=== PATIENT | male | born 1965 | race Caucasian/White ===

== ENCOUNTER 2024-11-15 09:35 | Inpatient (IN) | payer BC, SELFPAY ==
[2024-11-15] VITALS (10 sets, daily range): BP systolic 123–148; BP diastolic 84–96; PULSE 55–73; RESP 16–18; TEMP 36.4–36.9; O2SAT 92–96; BMI 30.3; BMI 30.4
--- NOTE | 2024-11-15 09:54 | CRLHL7_ITS ---
For Patients: As a result of the Century Cures Act, medical imaging exams and procedure reports are released immediately into your electronic medical record. You may view this report before your referring provider. If you have questions, please contact your health care provider. INDICATION: Acute stroke, left-sided weakness. TECHNIQUE: CTA neck with contrast bolus tracking, 3D angiographic rendering using maximum intensity projection (MIP) and images permanently archived. FINDINGS: There is a chronic dissection of the distal cervical right ICA; there is no flow-limiting stenosis or intraluminal filling defect. There is no significant left carotid artery stenosis or dissection. There is no significant vertebral artery stenosis or dissection. The soft tissues of the neck are within normal limits. The cervical spine is in normal alignment. Degenerative changes are noted in the cervical spine. IMPRESSION: 1. 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 2. No significant left carotid or vertebral artery stenosis or dissection. Please note that all CT scans at this facility use dose modulation, iterative reconstruction, and/or weight-based dosing when appropriate to reduce radiation dose to as low as reasonably achievable. Dictated by Yemi Zaman MD @ 11/15/2024 4:41:16 PM (Electronically Signed)
--- NOTE | 2024-11-15 09:54 | CRLHL7_ITS ---
For Patients: As a result of the Century Cures Act, medical imaging exams and procedure reports are released immediately into your electronic medical record. You may view this report before your referring provider. If you have questions, please contact your health care provider. Indication: Left-sided weakness. Technique: Noncontrast CT images of the brain. Comparison: None. Findings: Mild diffuse cerebral volume loss. No mass effect or midline shift. Cardenas-white differentiation is maintained. No acute intracranial hemorrhage or pathologic extra-axial fluid collection. Intracranial atherosclerotic calcifications. Globes are symmetric. Calvarium is intact. Severely opacified frontal sinuses. The mastoid air cells are clear. Impression: No acute intracranial hemorrhage or mass effect. Please note that all CT scans at this facility use dose modulation, iterative reconstruction, and/or weight-based dosing when appropriate to reduce radiation dose to as low as reasonably achievable. Dictated by Angel Luis Duncan MD @ 11/15/2024 11:07:07 AM (Electronically Signed)
--- NOTE | 2024-11-15 09:54 | CRLHL7_ITS ---
For Patients: As a result of the Century Cures Act, medical imaging exams and procedure reports are released immediately into your electronic medical record. You may view this report before your referring provider. If you have questions, please contact your health care provider. INDICATION: Acute stroke, left-sided weakness. TECHNIQUE: CTA head with contrast bolus tracking, 3D angiographic rendering using maximum intensity projection (MIP) and images permanently archived. FINDINGS: There is normal opacification of the intracranial vasculature. There is no large vessel occlusion. No aneurysm is identified. IMPRESSION: Unremarkable head CTA. Please note that all CT scans at this facility use dose modulation, iterative reconstruction, and/or weight-based dosing when appropriate to reduce radiation dose to as low as reasonably achievable. Dictated by Yemi Zaman MD @ 11/15/2024 4:38:00 PM (Electronically Signed)
[2024-11-15 10:11] LABS: Lactate* 1.1 mmol/L (0.5-1.9)
[2024-11-15 10:15] LABS: Basophils Percent Auto 0.5 % (0.0-3.0); Eosinophils Percent Auto 1.3 % (0.0-7.0); Hematocrit 52.1 % (37.0-53.0); Hemoglobin* 17.5 gm/dL (13.5-17.5); Immature Granulocytes Pct Auto 0.3 %; Lymphocytes Percent Auto 48.9 % (20-44); Mean Corpuscular HGB Conc 34 gm/dL (32-36); Mean Corpuscular Hemoglobin 31 pg (26-34); Mean Corpuscular Volume 94 fL (80-100); Monocytes Percent Auto 4.6 % (0.0-11.0); Neutrophils Percent Auto 44.4 % (42.0-72.0); Platelet Count* 268 K/uL (140-440); RDW Coefficient of Variation % 12.2 % (11.5-15.5); Red Blood Count 5.57 m/uL (4.30-5.90); White Blood Count* 11.34 K/uL (4.50-11.00)
[2024-11-15 10:18] LABS: Slide Review Reflex No
--- NOTE | 2024-11-15 10:20 | ED_ITS ---
HPI - General Adult General Chief complaint: Weakness Stated complaint: weakness Time Seen by Provider: 11/15/24 09:39 Source: patient Mode of arrival: ambulatory Limitations: no limitations History of Present Illness HPI narrative: 59-year-old male presenting with left-sided weakness. Patient states that 2 days ago he started developing cramping in the left lower extremity and that slowly evolved to weakness. By Saturday evening he states that he was having a hard time using his left leg. By the time he woke up on Saturday morning he could not use his left leg at all and he was having a difficult time walking. He went about his business all day Saturday and noticed that I he was having a hard time using his left arm as well. By Saturday he thought things were a little bit better but certainly not back to normal. He is having a hard time ambulating, states that his left arm is not necessarily weak but is not functioning properly, he was having word-finding difficulty yesterday that resolved, but he still cannot walk in a straight line and complains of left leg weakness. He denies headache, blurry vision or double vision. He denies any ringing in his ears. Past medical history significant for hypertension. He has had both hips replaced. He takes amlodipine, Lasix, metoprolol and spironolactone. He denies tobacco or alcohol use. Related Data Home Medications ?Medication ?Instructions ?Recorded ?Confirmed amlodipine 10 mg tablet 10 mg PO DAILY 11/15/24 11/15/24 furosemide 20 mg tablet (Lasix) 20 mg PO DAILY 11/15/24 11/15/24 metoprolol succinate 200 mg 200 mg PO DAILY 11/15/24 11/15/24 tablet,extended release 24 hr spironolactone 25 mg tablet 25 mg PO DAILY 11/15/24 11/15/24 Allergies Allergy/AdvReac Type Severity Reaction Status Date / Time No Known Drug Allergies Allergy Verified 11/15/24 09:44 Review of Systems Status of ROS: Reports: 10 or more systems reviewed and unremarkable except as noted in History and below [facility] Social History Smoking Status: Smoker, status unknown Non-prescribed substance use: denies use Exam Narrative: Exam Narrative: Well-nourished well-developed patient in no acute distress. Alert and oriented. Answers questions appropriately. Mood and affect are appropriate. Thoughts are goal oriented and rational. No tangential or magical thinking noted. Patient speaks in full sentences without needing to catch his breath. Speech is not slurred or pressured. HEENT: Normocephalic atraumatic. Pupils are equally round reactive to light. Extraocular muscles are intact. Conjunctivae are moist without any icterus noted. Moist mucous membranes. Posterior pharynx is normal. Neck is soft without any lymphadenopathy or thyromegaly. Cardiovascular: Heart is regular rate and rhythm S1 and S2 are present without any murmurs. Lungs: Clear to auscultation bilaterally no wheezes rhonchi or rales are appreciated. Patient takes deep breaths without any discomfort. Abdomen: Soft and nontender nondistended with normal bowel sounds. Extremities: Bilateral lower extremities are without edema. Skin: Well perfused without any obvious rashes. Strength is 5/5 of the upper and lower extremities on the right. Strength is 2/5 of the left lower extremity and 3/5 of the left upper extremity. 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 He does have a pronator drift on the left of the upper extremities. Romberg sign is negative. Cranial nerves 3-12 are grossly normal. His gait is staggered and off balance. Const: Vital Signs, click to edit/add: Vital Signs - 24 hr 11/15/24 09:36 11/15/24 11:20 Temperature 98.4 F Pulse Rate 68 Pulse Rate [Right Pulse Oximeter] 73 Respiratory Rate 18 16 Blood Pressure 123/84 Blood Pressure [Ri ght Upper Arm] 148/88 H Pulse Oximetry 94 96 Oxygen Delivery Me thod Room Air Course Course ED Course: Certainly appears that this patient has had a stroke. It has been approximately 40 hours or so since his symptoms started. Head CT unremarkable. CTA head and neck shows internal carotid dissection on the right that appears to be chronic appearing. Discussed this with Dr. Goldman who recommends 81 mg of aspirin, 75 mg of Plavix and a MRI brain and MRA head and neck 1st thing in the morning. He will have a neurologic medial evaluation prior to admission. EKG, read by me, shows normal sinus rhythm, left axis deviation with a pulse of 60. Blood work was unremarkable. Vital Signs Vital signs: Initial Vital Signs Temperature 98.4 F 11/15/24 09:36 Temperature Source Temporal Artery Scan 11/15/24 09:36 Pulse Rate 73 11/15/24 09:36 Pulse Rhythm Regular 11/15/24 09:36 Pulse Strength 3+ Normal 11/15/24 09:36 Respiratory Rate 18 11/15/24 09:36 Blood Pressure 148/88 H 11/15/24 09:36 Blood Pressure Mean 108 H 11/15/24 09:36 Blood Pressure Position Sitting 11/15/24 09:36 Pulse Oximetry 94 11/15/24 09:36 Oxygen Delivery Method Room Air 11/15/24 09:36 Vital Signs Temperature 98.4 F 11/15/24 09:36 Pulse Rate 73 11/15/24 09:36 Respiratory Rate 18 11/15/24 09:36 Blood Pressure 148/88 H 11/15/24 09:36 Pulse Oximetry 94 11/15/24 09:36 Oxygen Delivery Method Room Air 11/15/24 09:36 Temperature 98.4 F 11/15/24 09:36 Pulse Rate 68 11/15/24 11:20 Respiratory Rate 16 11/15/24 11:20 Blood Pressure 123/84 11/15/24 11:20 Pulse Oximetry 96 11/15/24 11:20 Oxygen Delivery Method Room Air 11/15/24 09:36 Medical Decision Making MDM Narrative Medical decision making narrative: 59-year-old male presenting with a stroke greater than 24 hours. Patient will be admitted for further management. Lab Data Lab results reviewed: Yes I reviewed the patient's lab results Labs: Lab Results 11/15/24 Range/Units 10:00 WBC 11.34 H (4.50-11.00) K/uL RBC 5.57 (4.30-5.90) m/uL Hgb 17.5 (13.5-17.5) gm/dL Hct 52.1 (37.0-53.0) % MCV 94 (80-100) fL MCH 31 (26-34) pg MCHC 34 (32-36) gm/dL RDW Coeff of Elliot 12.2 (11.5-15.5) % Plt Count 268 (140-440) K/uL Neut % (Auto) 44.4 (42.0-72.0) % Lymph % (Auto) 48.9 H (20-44) % Barnwell % (Auto) 4.6 (0.0-11.0) % Eos % (Auto) 1.3 (0.0-7.0) % Baso % (Auto) 0.5 (0.0-3.0) % Neut # (Auto) 5.00 (1.7-7.0) K/uL Lymph # (Auto) 5.50 H (0.90-2.90) K/uL Barnwell # (Auto) 0.50 (0.00-0.90) K/UL Eos # (Auto) 0.10 (0.00-0.50) K/uL Baso # (Auto) 0.10 (0.00-0.30) K/uL Abs Immat Gran (auto) 0.00 (0.00-0.30) K/uL Imm/Tot Granulo (auto) 0.3 % INR 0.86 L (0.91-1.10) Sodium 138 (135-149) mmol/L Potassium 4.7 (3.6-5.1) mmol/L Chloride 107 (96-114) mmol/L Carbon Dioxide 25 (20-32) mmol/L Anion Gap 6 L (7-15) mEq/L BUN 23 (7-30) mg/dL Creatinine 1.0 (0.5-1.5) mg/dL Estimated Creat Clear 82.62 Estimated GFR 86 ml/min Glucose 149 H (60-115) mg/dL Lactate 1.1 (0.5-1.9) mmol/L Calcium 9.0 (8.4-10.6) mg/dL Total Bilirubin 0.7 (0.1-1.5) mg/dL Direct Bilirubin 0.2 (0.0-0.5) mg/dL AST 27 (12-35) U/L ALT 24 (4-50) U/L Alkaline Phosphatase 67 (40-150) U/L Troponin I < 0.01 (0.01-0.04) ng/mL C-Reactive Protein 0.7 (0.5-1.0) mg/dL Total Protein 6.9 (6.0-8.3) g/dL Albumin 4.1 (3.3-5.0) g/dL TSH 2.430 (0.270-4.20) uIU/mL Imaging Data CT scan - head: Attestation: I have reviewed the pertinent imaging results. Radiologist's impression: Technique: Noncontrast CT images of the brain. Comparison: None. Findings: Mild diffuse cerebral volume loss. No mass effect or midline shift. Cardenas-white differentiation is maintained. No acute intracranial hemorrhage or pathologic extra-axial fluid collection. Intracranial atherosclerotic calcifications. Globes are symmetric. Calvarium is intact. Severely opacified frontal sinuses. The mastoid air cells are clear. Impression: No acute intracranial hemorrhage or mass effect. Head neck CTA: Attestation: I have reviewed the pertinent imaging results. Radiologist's impression: Study:?CT-Head Angio W/ [id number] 10:59:21 AM Ordering Physician:Xi Troy Preliminary Report: No proximal large vessel occlusion. Short segment, chronic appearing dissection of the distal right cervical in ternal carotid artery associated with pseudoaneurysm measuring up to 5 mm in transverse dimension. No flow-limiting stenosis. ECG Data Attestation: I personally reviewed and interpreted this ECG as follows: Discharge Plan Discharge Clinical Impression: Stroke Patient Disposition: Admitted As Observation Condition: Stable Prescriptions: No Action amlodipine 10 mg tablet 10 mg PO DAILY metoprolol succinate 200 mg tablet extended release 24 hr 200 mg PO DAILY furosemide [Lasix] 20 mg tablet 20 mg PO DAILY spironolactone 25 mg tablet 25 mg PO DAILY Follow Up/Referrals: Enrrique Au MD [Primary Care Provider] -
--- OUTSIDE RECORDS SUMMARY | 2024-11-15 10:23 | XMS_ITS | Clinical Summary ---
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 06/25/2006 Social History Tobacco Use Types Packs/Day Years Used Date Smoking Tobacco: Never Assessed Adolescent Education Answer Date Record ed Getting School Help Needed Not on file 05/05 Sex and Gender Information Value Date Recorded Sex Assigned at Not on file Legal Sex Male 3:22 AM [employer] Gender Identity Not on file Sexual Orientation Not on file Plan of Treatment Not on file Insurance [facility] OF [facility] Care Teams [facility] Relationship Specialty Start Date End Date Clinic, [facility] [address] [facility] [place] [address] PCP - General 01/04/[address] [place] [address] Family Medicine 01/04/21
--- OUTSIDE RECORDS SUMMARY | 2024-11-15 10:23 | XMS_ITS | Clinical Summary ---
Author Organization [facility] Address [address] [place] [id number] Care Team Providers Care [employer] Developer Name Role Phone Enrrique Au MD Primary Care Provider Angi Cortez MD Unavailable Kellen Pisano NP Unavailable Allergies Active Allergy Reactions Criticality Noted Date Comments Jpcxvhp-Nuq-Uft Reductase Inhibitors Myalgia 07/16/2023 Medications Cholecalciferol, Vitamin D3, (VITAMIN D-3) 1,000 unit chew Take by mouth. 0 10/29/2014 Active naproxen (Aleve) 220 mg tablet Active amLODIPine (NORVASC) 10 mg tabletIndication s:Hypertension, unspecified type,Well adult exam Take 1 Tablet (10 mg) by mouth once daily. 90 Tablet 3 08/04/2024 Active furosemide (LASIX) 20 mg tabletIndication s:Hypertension, unspecified type,Well adult exam Take 1 Tablet (20 mg) by mouth once daily in the morning. 90 Tablet 3 08/04/2024 Active metoprolol succinate SR (TOPROL XL) 200 mg Sustained-Releas e tabletIndication s:Hypertension, unspecified type Take 1 Tablet (200 mg) by mouth once daily. 90 Tablet 3 08/04/2024 Active spironolactone (ALDACTONE) 25 mg tabletIndication s:Hypertension, unspecified type Take 1 Tablet (25 mg) by mouth once daily. 90 Tablet 3 08/04/2024 Active Active Problems Problem Noted Date Diagnosed Date Left sciatic nerve pain 11/16/2016 Lymphocytosis 07/27/2015 Depression 12/23/2013 Vitamin D deficiency 12/23/2013 Nephrolithiasis 11/12/2012 Overview (11/12/2012): Calcium oxalate ED (erectile dysfunction) 03/29/2010 HTN (hypertension) 03/28/2010 Generalized headaches 03/28/2010 Personal history of colonic polyps 03/28/2010 Colon cancer 03/28/2010 Overview (03/28/2010): Upper rectum Angiodysplasia 03/28/2010 Overview (03/28/2010): cecal CLL (chronic lymphocytic leukemia) History of colon cancer CLL (chronic lymphocytic leukemia) Overview (10/23/2021): check lab every 6 months Resolved Problems Problem Noted Date Diagnosed Date Resolved Date health maintenance 03/28/2010 0 Overview (03/28/2010): 12/24 lipidp total 189, hdl 38, ldl-c 126, trig 127, 02/26 colonoscopy neg anastomosis Immunizations Immunization Administration Dates Next Due Tdap 05/10/2020,03/29/2010 Family History Medical History Relation Name Comments Hypertension Father Hypertension Sister 1 Cancer-breast Sister 2 dx @ 58 yo Anesthesia Problem No Family History Cancer-colon No Family History Cancer-prostate No Family History Diabetes No Family History Heart Disease No Family History Stroke No Family History Relation Name Status Comments Father Sister 1 Sister 2 Social History Tobacco Use Types Packs/Day Years Used Date Smoking Tobacco: Never Smokeless Tobacco: Never Alcohol Use Standard Drinks/Week Comments Not Currently 0 (1 standard drink = 0.6 oz pur e alcohol) PHQ-2 Answer Date Recorded PHQ-2 TOTAL SCORE 0 08/04/2024 Social Connections Answer Date Recorded Do you often feel lonely or isolated from those around you? 0 08/03/2024 Financial Resource Strain Answer Date R ecorded Difficulty of Paying Living Expenses 3 08/03/2024 Difficulty of Paying Living Expenses Not on file 08/03/2024 Food Insecurity Answer Date Recorded Do you worry your food will run out before you are able to buy more? 1 08/03/2024 Transportation Needs Answer Date Record ed Does lack of transportation keep you from medica l appointments? 1 08/03/2024 Does lack of transportation keep you from work, meetings or getting things that you need? 1 08/03/2024 Housing Stability Answer Date Recorded What is your housing situation today? 1 08/03/2024 Utilities Answer Date Recorded Do you have trouble paying f or utilities (for example, heat, electricity, water, phone)? 1 08/03/2024 Sex and Gender Information Value Date Recorded Sex Assigned at Not on file Legal Sex Male 6:40 AM ENGINE LATHE TENDER Gender Identity Not on file Sexual Orientation Not on file Obstetrics History Last Filed Vital Signs Vital Sign Reading Time Taken Comments Blood Pressure 110/74 08/04/2024 8:16 AM ENGINE LATHE TENDER Pulse 78 08/04/2024 8:16 AM ENGINE LATHE TENDER Temperature 36.4 C (97.6 F) 07/30/2023 9:23 AM ENGINE LATHE TENDER Respiratory Rate 16 07/30/2023 9:23 AM ENGINE LATHE TENDER Oxygen Saturation 94% 07/30/2023 9:23 AM ENGINE LATHE TENDER Inhaled Oxygen Concentration - - Weight 100.7 kg (222 lb) 08/04/2024 8:16 AM ENGINE LATHE TENDER Height 177.8 cm (5' 10) 08/04/2024 8:16 AM ENGINE LATHE TENDER Body Mass Index 31.85 08/04/2024 8:16 AM ENGINE LATHE TENDER Plan of Treatment Health Maintenance Due Date Last Done Comments COVID-19 vaccine series (#1) 1968 HIV for age 15-65 1978 Pneumococcal series for age 50+ (1 of 2 - PCV) 1982 Zoster (shingles) series for age 50+ (1 of 2) 1982 RSV vaccine for adults or (1 - Risk 60-74 years 1-dose series) 2023 Colonoscopy through age 75 06/21/2024 06/21/2021, Influenza Vaccine (Season Ended) 2025 BMI (ht and wt on same day) for age 18+ 08/04/2025 08/04/2024, 07/10/2023, 07/04/2022, Additional history exists Depression screening for age 12+ 08/04/2025 08/04/2024, 07/10/2023, 04/30/2022, Additional history exists Lipids for age 45-75 08/04/2029 08/04/2024, 07/10/2023, 04/26/2022, Additional history exists Tetanus booster 05/10/2030 05/10/2020, 03/29/2010 Hepatitis C screening for ag e 18-79 Completed 05/10/2020, 06/24/2015 Tdap Completed 05/10/2020, 03/29/2010 Procedures Procedure Name Priority Date/Time Associated Diagnosis Comments LIPID PANEL W REFLEX MEASURED LDL Routine 08/04/2024 9:12 AM ENGINE LATHE TENDER Well adult exam COLONOSCOPY 06/21/2021 9:55 AM ENGINE LATHE TENDER ANTI HCV Routine 05/10/2020 4:35 PM CDT Need for hepatitis C screening test from Last 3 Months or Most Recently Relevant to Health Maintenance Results * (ABNORMAL) LIPID PANEL W REFLEX MEASURED LDL (08/04/2024 9:12 AM ENGINE LATHE TENDER) CHOLESTEROL, TOTAL 203(H) <200 mg/dL [facility] HDL CHOLESTEROL 37(L) > OR = 40 mg/dL [facility] TRIGLYCERIDES 193(H) <150 mg/dL [facility] LDL-CHOLESTEROL 133(H) mg/dL (calc) [facility] Comment: Reference range: <100 Desirable range <100 mg/dL for primary prevention; <70 mg/dL for patients with CHD or diabetic patients with > or = 2 CHD risk factors. LDL-C is now calculated using the Aleksander-Aydee calculation, which is a validated novel method providing better accuracy than the Friedewald equation in the estimation of LDL-C. Aleksander SS et al. LLOYD. 2013;310(19): 5574-3807 (http://education.InExchange/faq/KUK744) CHOL/HDLC RATIO 5.5(H) <5.0 (calc) [facility] NON HDL CHOLESTEROL 166(H) <130 mg/dL (calc) [facility] Comment: For patients with diabetes plus 1 major ASCVD risk factor, treating to a non-HDL-C goal of <100 mg/dL (LDL-C of <70 mg/dL) is considered a therapeutic option. Blood BLOOD SPECIMEN / Unknown 08/04/2024 9:12 AM ENGINE LATHE TENDER 08/04/2024 9:14 AM ENGINE LATHE TENDER Narrative [facility] - 08/05/2024 4:39 AM ENGINE LATHE TENDER FASTING:YES FASTING: YES Enrrique Au MD CHEMISTRY Final R esult [facility] [address] [place] [address], [facility] [address] [place] [address] * COLONOSCOPY (06/21/2021 9:55 AM ENGINE LATHE TENDER) 06/21/2021 9:55 AM ENGINE LATHE TENDER Narrative Transcriptions Saran Vega MD - 06/21/2021 11:18 AM CST Patient Name: Lakhwinder Antonio Procedure Date: 06/21/2021 Gender: Male Date of : 1965 Admit Type: Ambulatory Procedure: Colonoscopy Proceduralist: Saran Vega [facility] Indications/Pre-Op Diagnosis: High risk colon cancer surveillance:Personal history of colon cancer Medications: Midazolam 5 mg IV, Fentanyl 100 microgramsIV Procedure Description: The patient had risks, benefits and alternatives explained to andgave informed consent. The patient had a stable cardiopulmonary status and judged an adequate candidate for conscious sedation. The colonoscope was passed through the anus and advanced to thececum, identified by appendiceal orifice and ileocecal valve. Thecolonoscopy was performed without difficulty. The patient tolerated the procedure well. The quality of the bowel preparation was adequate. Theileocecal valve, appendiceal orifice, and rectum were photographed. Complications: No immediate complications. Estimated Blood Loss & Specimen: Estimated blood loss: none. Specimen collected - Yes and sent to Laboratory Findings: The perianal and digital rectal examinations were normal. A 3 mm polyp was found in the mid sigmoid colon. The polyp wassessile. The polyp was removed with a hot snare. Resection and retrieval were complete. Two sessile polyps were found in the mid rectum. The polyps were 6 to8 mm in size. These polyps were removed with a hot snare. Resection and retrieval were complete. A 4 mm polyp was found in the distal rectum. The polyp was sessile.The polyp was removed with a hot snare. Resection and retrieval were complete. There was evidence of a prior end-to-end colo-colonic anastomosis inthe proximal rectum. This was patent and was characterized by healthy appearing mucosa. Impressions/Post-Op Diagnosis: - One 3 mm polyp in the mid sigmoid colon, removed with a hot snare. Resected and retrieved. - Two 6 to 8 mm polyps in the mid rectum, removed with a hot snare. Resected and retrieved. - One 4 mm polyp in the distal rectum, removed with a hot snare. Resected and retrieved. - Patent end-to-end colo-colonic anastomosis, characterized byhealthy appearing mucosa. Recommendation: - Discharge patient to home. - Resume previous diet. - Continue present medications. - Await pathology results. - Repeat colonoscopy in 3 years for surveillance. Moderate Sedation: Moderate (conscious) sedation was administered by the endoscopy nurse and supervised by the endoscopist. The following parameters were monitored: oxygen saturation, heart rate, respiratory rate, adequacyof pulmonary ventilation and reponse to care. Please refer to the patient's medical record flowsheets for moderate sedation details. Moderate (conscious) sedation was administered by the endoscopy nurse and supervised by the endoscopist. The patient's oxygen saturation, heart rate, blood pressure and response to care were monitored. Total physician intraservice time was 36 minutes. Saran Vega, 06/21/2021 11:18:03 AM This report has been signed electronically. Note Initiated On: 06/21/2021 9:55 AM Saran Vega MD PROCEDURE ORD Final Res ult * ANTI HCV (05/10/2020 4:35 PM CDT) HEPATITIS C ANTIBODY Non-React riley Non-React riley 05/10/2020 9:37 PM CDT [employer] [facility] Comment:Antibodies to HCV no t detected; does not exclude the possibility of exposure to HCV. Blood BLOOD SPECIMEN / Unknown Venipuncture / Unknown 05/10/2020 4:35 PM CDT 05/10/2020 4:38 PM CDT Enrrique Au MD SEND OUTS Final R [facility]ult [facility] [address] [place] [address], from Last 3 Months or Most Recently Relevant to Health Maintenance Insurance [facility] Advance Directives * Full Code (Latest Code Status on File) Date Activated Date Inactivated Comments 06/21/2021 9:45 AM 06/21/2021 1:46 PM Question Answer Comments Code Status Discussion: Per Existing Order Care Teams [employer] Developer Relationship Specialty Start Date End Date Enrrique Au MD [address] [facility] [place] [address] PCP - General Family Practice 05/10/20 Angi Cortez MD [address] [place] [address] Hematology Hematology and Oncology 05/26/20 Kellen Pisano NP [address] [facility] [place] [address] Hematology Hematology and Oncology 05/26/20
[2024-11-15 10:27] LABS: Chloride* 107 mmol/L (96-114)
[2024-11-15 10:28] LABS: Albumin* 4.1 g/dL (3.3-5.0); Potassium* 4.7 mmol/L (3.6-5.1); Sodium* 138 mmol/L (135-149)
[2024-11-15 10:30] LABS: Blood Urea Nitrogen* 23 mg/dL (7-30); Est. Creatinine Clearance* 82.62; Estimated Glomerular Filt Rate 86 ml/min; INR 0.86 (0.91-1.10); Prothrombin Time 12.4 Seconds
[2024-11-15 10:31] LABS: Alanine Aminotransferase* 24 U/L (4-50); Alkaline Phosphatase* 67 U/L (40-150); Anion Gap 6 mEq/L (7-15); Aspartate Amino Transferase* 27 U/L (12-35); Bilirubin Direct* 0.2 mg/dL (0.0-0.5); Bilirubin Total* 0.7 mg/dL (0.1-1.5); Carbon Dioxide* 25 mmol/L (20-32); Glucose* 149 mg/dL (60-115); Total Protein* 6.9 g/dL (6.0-8.3)
[2024-11-15 10:34] LABS: C Reactive Protein* 0.7 mg/dL (0.5-1.0)
[2024-11-15 10:51] LABS: Troponin I* < 0.01 ng/mL (0.01-0.04)
[2024-11-15] MEDS: CLOPIDOGREL 75 MG TABLET PO (13:06)
[2024-11-15] MEDS: ASPIRIN 81 MG TABLET EC PO (13:06)
--- NOTE | 2024-11-15 14:43 | PM.IMHP1 ---
Assessment and Plan Assessment and plan (1) Stroke: Problem comment: - symptoms of left facial droop, left upper and lower extremity weakness and ataxia consistent with probable stroke. Appreciate recommendations from [facility]: - MRI Brain with MRA Head & Neck (I have ordered this for tomorrow) - Start aspirin 81mg daily + Plavix 75mg daily (started in the emergency department, and I have written for these to continue) - Continuous cardiac monitoring (ordered) - Lipid panel (ordered) - Goal BP: normotension (see below) - NS for hydration (patient is able to take PO based on bedside swallow eval) - TTE (ordered) - PT/OT/Speech consult and PM&R (ordered) - frequent neuro checks (ordered) - SCDs (ordered) - reason for no lytic: out of time window - reason for no LORETTA: out of time window, no LVO on CTA Status: Acute (2) Hypertension: Problem comment: - as per recommendations from Neurology above, continue his usual home medications of amlodipine, furosemide, metoprolol, and spironolactone. Monitor blood pressure. Status: Chronic Hospitalist- H&P: HPI History of Present Illness Time Seen by Provider: 14:43 Date Seen: 11/15/24 Chief complaint: weakness Narrative: Lakhwinder Antonio is a 59 year old male with h/o hypertension came in for persistent left leg and arm weakness. He started having leg cramps in the left leg only Saturday night as he was trying to sleep. He woke up sometime in the compliance intern and felt like his left leg was clumsy. All Saturday morning his left leg felt like it was dragging his left hand was not responding quite as quickly as his right does. On rare occasion he has had left leg cramping before but it was never associated with loss of mobility like it was on Saturday. When it has happened in the middle of the night he will often get up and move around and that improves the pain. He also takes magnesium sometimes which helps. The left leg weakness started to improve a little bit on Saturday, but by the evening he was having the left leg cramping again and then this morning left leg was again very weak and dragging. He tells me that he has overall been well recently other than a upper respiratory illness about a month ago that turned into a chest cold with a significant amount of coughing. [place] short of breath during that time but that resolved on its own. He has had no chest pain and no further shortness of breath. Review of Systems Status of ROS: Reports: 10 or more systems reviewed and unremarkable except as noted in History and below [facility] Medical History (Updated 11/15/24 @ 15:59 by Flor Dang MD) Left sciatic nerve pain ?M54.32 - Sciatica, left side (ICD-10) CLL (chronic lymphocytic leukemia) ?C91.10 - Chronic lymphocytic leukemia of B-cell type not having achieved remission (ICD-10) Depression ?F32.A - Depression, unspecified (ICD-10) Vitamin D deficiency ?E55.9 - Vitamin D deficiency, unspecified (ICD-10) Nephrolithiasis ?N20.0 - Calculus of kidney (ICD-10) Erectile dysfunction ?N52.9 - Male erectile dysfunction, unspecified (ICD-10) Angiodysplasia ?K55.20 - Angiodysplasia of colon without hemorrhage (ICD-10) Colon cancer ?C18.9 - Malignant neoplasm of colon, unspecified (ICD-10) Generalized headaches ?R51.9 - Headache, unspecified (ICD-10) Hypertension ?I10 - Essential (primary) hypertension (ICD-10) Surgical History (Updated 11/15/24 @ 15:09 by Flor Dang MD) History of right hip replacement (~2022) ?Z96.641 - Presence of right artificial hip joint (ICD-10) H/O vasectomy ?Z98.52 - Vasectomy status (ICD-10) History of left hip replacement (10/05/20) ?Z96.642 - Presence of left artificial hip joint (ICD-10) Hx of colonoscopy ?Z98.890 - Other specified postprocedural states (ICD-10) H/O colectomy ?Z90.49 - Acquired absence of other specified parts of digestive tract (ICD-10) Family History (Updated 11/15/24 @ 15:11 by Flor Dang MD) Sister Breast cancer High blood pressure Father High blood pressure Stroke Uncle Stroke Social History (Updated 11/15/24 @ 15:12 by Flor Dang MD) 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 Never smoker. Denies alcohol or recreational drug use. FULL CODE. What is your current living situation?: I presently have a place to live Problems where you live: no known problems Problems where you live details: n/a In the past 12 months, utilities in danger of being shut off: no In past 12 months, lack of transportation kept you from medical appts, meetings, work, or getting things needed for daily living: no In the past 12 mos, have been you worried that your food would run out before you had money to buy more?: never true In the past 12 mos, the food you bought just didn't last and you didn't have money to buy more?: never true Highest level of school completed/degree received: Associate degree: occupational, technical, vocational program Smoking Status: Never smoker Second hand tobacco smoke exposure: No How often do you have a drink containing alcohol: never AUDIT-C Alcohol total score: 0 Non-prescribed substance use: denies use Caffeine: Yes (two sodas weekly) How often does anyone, including family, friends and others, physically hurt you: never How often does anyone, including family, friends and others, insult or talk down to you: never How often does anyone, including family, friends and others, threaten you with harm: never How often does anyone, including family, friends and others, scream or curse at you: never service: No Meds Home Medications and Allergies Home Medications ?Medication ?Instructions ?Recorded ?Confirmed ?Type amlodipine 10 mg tablet 10 mg PO DAILY 11/15/24 11/15/24 History cholecalciferol (vitamin D3) 25 2,000 unit PO DAILY 11/15/24 11/15/24 History mcg (1,000 unit) tablet (Vitamin D3) furosemide 20 mg tablet (Lasix) 20 mg PO DAILY 11/15/24 11/15/24 History metoprolol succinate 200 mg 200 mg PO DAILY 11/15/24 11/15/24 History tablet,extended release 24 hr spironolactone 25 mg tablet 25 mg PO DAILY 11/15/24 11/15/24 History Allergies Allergy/AdvReac Type Severity Reaction Status Date / Time No Known Drug Allergies Allergy Verified 11/15/24 09:44 Exam Narrative: Exam Narrative: General: No acute distress. Awake alert oriented x3. Obese. Did a bedside swallow evaluation with the patient and he is able to drink water without coughing or sputtering and able to eat a regular diet without coughing or sputtering. HEENT: Normocephalic atraumatic, pupils equally round and reactive to light and accommodation. Oropharynx clear. Mucous membranes are moist. No cervical lymphadenopathy, thyromegaly or carotid bruits. No JVD. Cardiovascular: Regular rate and rhythm. No murmurs, gallops, or rubs. Chest: No increased work of breathing. Clear to auscultation bilaterally. No crackles or wheezes. Abdomen: Bowel sounds present. Soft, nondistended, nontender. No hepatosplenomegaly or masses. Extremities: 1+ left ankle edema, no edema of the right lower extremity, no cyanosis or clubbing. Dorsalis pedis and posterior tibial pulses are 2+ bilaterally. Skin: No jaundice, no pallor, no rashes on visible skin. Neuro: Left facial droop is present, especially noticeable when he opens his mouth. Cranial nerves 2-12 are otherwise intact. Extraocular movements are full. No nystagmus. Tongue is midline. Peripheral vision and vision are grossly intact. Strength is 4/5 in left upper extremity, 3/5 in left lower extremity, 5/5 in both right upper and lower extremities. Light touch sensation is intact in face, body and extremities. Coordination is impaired and left upper and left lower extremities. Const: Vital Signs, click to edit/add: Vital Signs - 24 hr 11/15/24 09:36 11/15/24 11:20 11/15/24 12:30 Temperature 98.4 F Pulse Rate 68 64 Pulse Rate [Pulse Oximeter] Pulse Rate [Right Pulse Oximeter] 73 Respiratory Rate 18 16 Blood Pressure 123/84 Blood Pressure [Le ft Arm] Blood Pressure [Ri ght Upper Arm] 148/88 H Pulse Oximetry 94 96 96 Oxygen Delivery Me thod Room Air 11/15/24 13:02 11/15/24 13:31 Temperature 97.5 F L Pulse Rate 59 L Pulse Rate [Pulse Oximeter] 55 L Pulse Rate [Right Pulse Oximeter] Respiratory Rate 18 18 Blood Pressure 129/84 Blood Pressure [Le ft Arm] 125/89 Blood Pressure [Ri ght Upper Arm] Pulse Oximetry 94 95 Oxygen Delivery Me thod Room Air Hospitalist - H&P: Result Labs Labs: Short CBC 11/15/24 Range/Units 10:00 WBC 11.34 H (4.50-11.00) K/uL Hgb 17.5 (13.5-17.5) gm/dL Hct 52.1 (37.0-53.0) % Plt Count 268 (140-440) K/uL BMP 11/15/24 10:00 Sodium 138 Potassium 4.7 Chloride 107 Carbon Dioxide 25 BUN 23 Creatinine 1.0 Glucose 149 H Calcium 9.0 Cardiac Enzymes 11/15/24 Range/Units 10:00 Troponin I < 0.01 (0.01-0.04) ng/mL Liver Function 11/15/24 Range/Units 10:00 Total Bilirubin 0.7 (0.1-1.5) mg/dL Direct Bilirubin 0.2 (0.0-0.5) mg/dL AST 27 (12-35) U/L ALT 24 (4-50) U/L Alkaline Phosphatase 67 (40-150) U/L Albumin 4.1 (3.3-5.0) g/dL H&P: Quality Stroke Contraindication Not Initiating IV-Tpa: Medical contraindication (out of time window) Onset of Symptoms Date: 11/13/24 Symptom Onset Unknown: Yes
--- NOTE | 2024-11-15 15:50 | CRLHL7_ITS ---
For Patients: As a result of the Century Cures Act, medical imaging exams and procedure reports are released immediately into your electronic medical record. You may view this report before your referring provider. If you have questions, please contact your health care provider. INDICATION: Leg cramping and swelling. TECHNIQUE: Ultrasound venous duplex lower left extremity. Compression venous exam was performed using farmer-scale, color Doppler, and spectral Doppler analysis. FINDINGS: Sonographic imaging demonstrates the left common femoral, deep femoral, superficial femoral, popliteal, posterior tibial and greater saphenous and the contralateral right common femoral veins to be fully compressible with normal color Doppler blood flow. IMPRESSION: No left lower extremity DVT identified. Dictated by Neo Murcia MD @ 11/15/2024 5:51:33 PM Dictated by: Neo Murcia MD @ 11/15/2024 17:51:43 (Electronically Signed)
--- NOTE | 2024-11-15 16:01 | PC.NURSE ---
No difficulties noted during bedside swallow evaluation. Pt tolerated regular diet and thin liquids with no signs of aspiration.
--- NOTE | 2024-11-15 19:35 | PC.NURSE ---
End of shift: Patient pleasant and cooperative, A&o. VSS, afebrile. SpO2 maintained above 90% on RA. Denies SOB. Denies pain. Left side moderate weakness on leg noted, left side mild weakness in arm. Tolerating regular diet.
[2024-11-15] MEDS: ENOXAPARIN 40 MG/0.4 ML INJ SUBCUT (21:38)
[2024-11-15] MEDS: SODIUM CHLORIDE 0.9 % (FLUSH) 10 ML SYRINGE 5 ML IVF (21:39)
[2024-11-16] VITALS (10 sets, daily range): BP systolic 112–137; BP diastolic 75–93; PULSE 60–79; RESP 18–20; TEMP 36.6–36.7; O2SAT 92–95
--- NOTE | 2024-11-16 06:37 | PC.NURSE ---
Pt alert, oriented and vitally stable. Left side weakness, moderate in hands and mild in legs. Pt states difficulty with fine motor skills (eg. Sliding fingers through cup handle to pick it up) Pt up via SBA, tolerates well. Pt stated muscle spasms in legs, aqua k provided and pt stated improvement. Pt in bed, appears to be resting, call light within reach.?
[2024-11-16 06:46] LABS: Basophils Absolute Auto 0.06 K/uL (0.00-0.30); Basophils Percent Auto 0.6 % (0.0-3.0); Eosinophils Absolute Auto 0.18 K/uL (0.00-0.50); Eosinophils Percent Auto 1.7 % (0.0-7.0); Hematocrit 49.7 % (37.0-53.0); Hemoglobin* 16.9 gm/dL (13.5-17.5); Immature Granulocytes Abs Auto 0.04 K/uL (0.00-0.30); Immature Granulocytes Pct Auto 0.4 %; Mean Corpuscular HGB Conc 34 gm/dL (32-36); Mean Corpuscular Hemoglobin 32 pg (26-34); Mean Corpuscular Volume 93 fL (80-100); Neutrophils Percent Auto 41.3 % (42.0-72.0); Platelet Count* 247 K/uL (140-440); RDW Coefficient of Variation % 12.1 % (11.5-15.5); Red Blood Count 5.35 m/uL (4.30-5.90); White Blood Count* 10.59 K/uL (4.50-11.00)
[2024-11-16 06:59] LABS: Slide Review Reflex No
[2024-11-16 07:00] LABS: Chloride* 107 mmol/L (96-114)
--- NOTE | 2024-11-16 07:00 | CRLHL7_ITS ---
For Patients: As a result of the Century Cures Act, medical imaging exams and procedure reports are released immediately into your electronic medical record. You may view this report before your referring provider. If you have questions, please contact your health care provider. Indication: Left face/arm/leg weakness, possible stroke Technique: Multiplanar, multisequence MRI of the brain obtained without contrast. Comparison: CT head and CTA head/neck 11/15/2024 Findings: Small acute infarct involving the right ventral paramedian isak. No hemorrhagic transformation. Ventricles and cortical sulci are normal in configuration. Incidental prominent perivascular space at the right inferior basal ganglia. Normal white matter signal. Preserved major intracranial arterial flow voids. Complete opacification of the frontal sinuses. No mastoid effusion. Unremarkable orbits. Impression: 1. Small acute infarct involving the right ventral paramedian isak. No hemorrhagic transformation. 2. Opacified frontal sinuses. Dictated by Joycelyn Sandhu MD @ 11/16/2024 11:50:20 AM (Electronically Signed)
[2024-11-16 07:01] LABS: Potassium* 4.1 mmol/L (3.6-5.1); Sodium* 138 mmol/L (135-149)
[2024-11-16 07:03] LABS: Blood Urea Nitrogen* 19 mg/dL (7-30); Est. Creatinine Clearance* 82.62; Estimated Glomerular Filt Rate 86 ml/min
[2024-11-16 07:04] LABS: Anion Gap 7 mEq/L (7-15); Calcium* 8.5 mg/dL (8.4-10.6); Carbon Dioxide* 24 mmol/L (20-32); Cholesterol* 199 mg/dL (90-199); Glucose* 108 mg/dL (60-115); HDL Cholesterol* 28 mg/dL (>=40); LDL Cholesterol Calculated 127 mg/dL (<100); Triglycerides* 219 mg/dL (40-149)
[2024-11-16] MEDS: CLOPIDOGREL 75 MG TABLET PO (09:37)
[2024-11-16] MEDS: FUROSEMIDE 20 MG TABLET PO (09:38)
[2024-11-16] MEDS: ASPIRIN 81 MG TAB.CHEW PO (09:38)
[2024-11-16] MEDS: AMLODIPINE 10 MG TABLET PO (09:38)
[2024-11-16] MEDS: METOPROLOL SUCCINATE (XL) 100 MG TAB 200 MG PO (09:38)
[2024-11-16] MEDS: SPIRONOLACTONE 25 MG TABLET PO (09:39)
[2024-11-16] MEDS: SODIUM CHLORIDE 0.9 % (FLUSH) 10 ML SYRINGE 5 ML IVF ×2 (09:39→21:00)
[2024-11-16] MEDS: MIDAZOLAM HCL 1 MG/ML inj 2 MG IVP (10:27)
--- NOTE | 2024-11-16 12:36 | P.IMPN_ITS ---
Assessment and Plan Assessment and plan (1) Stroke: Problem comment: - 11/15 symptoms of left facial droop, left upper and lower extremity weakness and ataxia consistent with probable stroke - 11/16 MRI confirmed stroke: Small acute infarct involving the right ventral paramedian isak. I spoke with Dr. Goldman from [place] [facility] at 12:24 p.m. he recommended continuing aspirin 81 mg daily plus Plavix 75 mg daily. Due to confirm stroke he asked me to hold the patient's usual blood pressure medi cations (I noted that he had already gotten his morning doses this morning) to allow for permissive hypertension. We discussed his lipid panel and Dr. Cohen would like him to be on atorvastatin 40 mg daily. He agreed that the slight worsening in weakness overnight is likely due to evolution/completion of the stroke. I spoke with the patient's family to give them this information as well and answered their questions. Status: Acute (2) Hypertension: Problem comment: - as per recommendations from Neurology above, hold antihypertensives today to allow for permissive hypertension in the setting of confirmed stroke Status: Chronic (3) Dyslipidemia (high LDL; low HDL): Problem comment: TG 219; LDL 127; HDL 28 - start atorvastatin 40 mg daily for dyslipidemia in the setting of stroke Status: Acute Total Time Spent Total Time Spent: Today I spent 60 minutes seeing the patient, having several conversations with his family, phone conversation with Neurology, reviewing Expanse and EPIC notes/diagnostics/labs, discussing the care plan with our care team that includes social work, PT/OT, pharmacy, RT, mcc and documenting my impressions and plan in the medical record. Subjective Time Seen by Provider: 07:50 Date Seen: 11/16/24 Interval history: Lakhwinder notes a heavier feeling to his left leg today and more difficulty moving his left arm and leg. No new symptoms. Denies pain. His , his sister and their dad (Benjamin) are with him today. I spoke with them about the results of the MRI and ECHO as well as my conversation with Dr. Goldman today. MRI was attempted earlier today however Lakhwinder was unable to complete it at that time because of anxiety. He was given Versed prior to another attempt and was able to complete the MRI around 11:00 a.m.. Exam Narrative: Exam Narrative: General: No acute distress. Awake alert oriented. Cardiovascular: Regular rate and rhythm. No murmurs, gallops, or rubs. Chest: Clear to auscultation bilaterally. No crackles or wheezes. Abdomen: Bowel sounds present. Soft, nondistended, nontender. No he patosplenomegaly or masses. Extremities: Left ankle edema unchanged, no edema of the right lower extremity, no cyanosis or clubbing. Neuro: Left facial droop is unchanged. Cranial nerves 2-12 are otherwise intact. Strength is 3-4/5 in left upper extremity, 2-3/5 in left lower extremity, 5/5 in both right upper and lower extremities. Light touch sensation is intact in face, body and extremities. Coordination is impaired and left upper and left lower extremities. Const: Vital Signs, click to edit/add: Vital Signs - 24 hr 11/15/24 13:02 11/15/24 13:31 11/15/24 13:31 Temperature 97.5 F L Pulse Rate 59 L Pulse Rate [Pulse Oximeter] 55 L Respiratory Rate 18 18 18 Blood Pressure 129/84 Blood Pressure [Le ft Arm] 125/89 Pulse Oximetry 94 95 95 Oxygen Delivery [facility] Room Air Room Air 11/15/24 15:00 11/15/24 17:57 11/15/24 19:00 Temperature Pulse Rate Pulse Rate [Pulse Oximeter] 55 L 65 Respiratory Rate 18 Blood Pressure Blood Pressure [Le ft Arm] [facility]ulse Oximetry [facility] 11/[facility] 19:00 11/15/24 21:00 11/15/24 23:00 Temperature 98.2 F Pulse Rate 61 Pulse Rate [Pulse Oximeter] 65 65 Respiratory Rate 18 Blood Pressure Blood Pressure [Le ft Arm] 138/96 H Pulse Oximetry 92 Oxygen Delivery [facility] Room Air 11/15/24 23:00 11/15/24 23:00 11/15/24 23:00 Temperature Pulse Rate Pulse Rate [Pulse Oximeter] 70 70 Respiratory Rate 18 16 Blood Pressure Blood Pressure [Le ft Arm] 135/95 H Pulse Oximetry 92 92 [facility] Room Air 11/15/24 23:00 11/16/24 01:00 11/16/24 03:00 Temperature Pulse Rate Pulse Rate [Pulse Oximeter] 70 70 70 Respiratory Rate 16 Blood Pressure Blood Pressure [Le ft Arm] Pulse Oximetry [facility] 11/16/24 03:00 11/16/24 05:00 11/16/24 07:00 Temperature 98.0 F Pulse Rate Pulse Rate [Pulse Oximeter] 64 60 65 Respiratory Rate 18 18 Blood Pressure Blood Pressure [Le ft Arm] 137/86 125/93 H Pulse Oximetry 92 93 Oxygen Delivery [facility] Room Air 11/16/24 07:00 11/16/24 07:00 11/16/24 07:25 Temperature Pulse Rate 62 Pulse Rate [Pulse Oximeter] 65 Respiratory Rate 18 Blood Pressure Blood Pressure [Le ft Arm] Pulse Oximetry 93 Oxygen Delivery [facility] Room Air 11/16/24 09:00 Temperature Pulse Rate Pulse Rate [Pulse Oximeter] 65 Respiratory Rate Blood Pressure Blood Pressure [Le ft Arm] Pulse Oximetry Oxygen Delivery [facility] Labs Labs: Laboratory Results - last 24 hr 11/16/24 06:00 WBC 10.59 RBC 5.35 Hgb 16.9 Hct 49.7 MCV 93 MCH 32 MCHC 34 RDW Coeff of Elliot 12.1 Plt Count 247 Neut % (Auto) 41.3 L Lymph % (Auto) 51.0 H [place] % (Auto) 5.0 Eos % (Auto) 1.7 Baso % (Auto) 0.6 Neut # (Auto) 4.40 Lymph # (Auto) 5.40 H [place] # (Auto) 0.50 Eos # (Auto) 0.18 Baso # (Auto) 0.06 Abs Immat Gran (auto) 0.04 Imm/Tot Granulo (auto) 0.4 Sodium 138 Potassium 4.1 Chloride 107 Carbon Dioxide 24 Anion Gap 7 BUN 19 Creatinine 1.0 Estimated Creat Clear 82.62 Estimated GFR 86 Glucose 108 Calcium 8.5 Triglycerides 219 H Cholesterol 199 LDL Cholesterol, Calc 127 H HDL Cholesterol 28 L Ordering Physician: Flor Dang M.D. Date of Service: 11/15/24 Procedure(s): US venous LE LT Accession Number(s): [id number] cc: Flor Dang M.D.; Enrrique Au M.D.~ For Patients: As a result of the 21st Century Cures Act, medical imaging exams and procedure reports are released immediately into your electronic medical record. You may view this report before your referring provider. If you have questions, please contact your health care provider. INDICATION: Leg cramping and swelling. TECHNIQUE: Ultrasound venous duplex lower left extremity. Compression venous exam was performed using farmer-scale, color Doppler, and spectral Doppler analysis. FINDINGS: Sonographic imaging demonstrates the left common femoral, deep femoral, superficial femoral, popliteal, posterior tibial and greater saphenous and the contralateral right common femoral veins to be fully compressible with normal color Doppler blood flow. IMPRESSION: No left lower extremity DVT identified. Dictated by Neo Murcia MD @ 11/15/2024 5:51:33 PM Dictated by: Neo Murcia MD @ 11/15/2024 17:51:43 (Electronically Signed) 11/16/2024 echocardiogram: Normal LV size, borderline wall thickness, normal global systolic function with an estimated EF of 60-65%. No significant valve disease detected. Ordering Physician: Flor Dang M.D. Date of Service: 11/16/24 Procedure(s): MR head/brain wo con Accession Number(s): [id number] cc: Flor Dang M.D.; Enrrique Au M.D.~ ADDENDUM Indication: Left face/arm/leg weakness, possible stroke Technique: Multiplanar, multisequence MRI of the brain obtained without contrast. Comparison: CT head and CTA head/neck 11/15/2024 Findings: Small acute infarct involving the right ventral paramedian isak. No hemorrhagic transformation. Ventricles and cortical sulci are normal in configuration. Incidental prominent perivascular space at the right inferior basal ganglia. Normal white matter signal. Preserved major intracranial arterial flow voids. Complete opacification of the frontal sinuses. No mastoid effusion. Unremarkable orbits. Impression: 1. Small acute infarct involving the right ventral paramedian isak. No hemorrhagic transformation. 2. Opacified frontal sinuses. Dictated by Joycelyn Sandhu MD @ 11/16/2024 11:50:20 AM ----- ADDENDUM ----- Exam report was faxed, with confirmation of receipt by Dr. Dang at 11:52 a.m. on 11/16/2024. Dictated by Joycelyn Sandhu MD @ Nov 16 2024 11:52AM (Electronically Signed) For Patients: As a result of the 21st Century Cures Act, medical imaging exams and procedure reports are released immediately into your electronic medical record. You may view this report before your referring provider. If you have questions, please contact your health care provider. Indication: Left face/arm/leg weakness, possible stroke Technique: Multiplanar, multisequence MRI of the brain obtained without contrast. Comparison: CT head and CTA head/neck 11/15/2024 Findings: Small acute infarct involving the right ventral paramedian isak. No hemorrhagic transformation. Ventricles and cortical sulci are normal in configuration. Incidental prominent perivascular space at the right inferior basal ganglia. Normal white matter signal. Preserved major intracranial arterial flow voids. Complete opacification of the frontal sinuses. No mastoid effusion. Unremarkable orbits. Impression: 1. Small acute infarct involving the right ventral paramedian isak. No hemorrhagic transformation. 2. Opacified frontal sinuses. Dictated by Joycelyn Sandhu MD @ 11/16/2024 11:50:20 AM (Electronically Signed) Progress Note: Quality Stroke Contraindication Not Initiating IV-Tpa: Medical contraindication (out of time window) Onset of Symptoms Date: 11/13/24 Symptom Onset Unknown: Yes
--- NOTE | 2024-11-16 16:19 | PC.SOCIAL ---
Addendum entered by EMSER Pizarro 11/16/24 16:31: Discharge planning: utility worker forge heard from pt's nurse shortly after writing the original note that the pt's is now interested in acute rehab for the pt and has concerns about caring for him at home. utility worker forge will discuss this with the other disciplines in rounds in the morning. Social work to follow-up as needed. Original Note: Discharge planning/social work consult: Pt had a very busy day today meeting with other disciplines throughout the day. utility worker forge attempted to meet with pt and x2. After review of pt's chart the current plan is for the pt to discharge home with support/help from his . utility worker forge will check-in with the pt and his in the morning. Social work to follow-up as needed.
--- NOTE | 2024-11-16 19:41 | PC.NURSE ---
End of shift-- Very pleasant and cooperative, alert and oriented patient. Mild left sided facial drooping and left sided weakness continue in both arm and leg. Other Neuros WNL. VSS and pt is afebrile. SPO2 maintained >90% on RA. He denied any pain. Telemetry showed NSR with 1st degree AV block. LS CTA. Pt had MRI this morning. Pt was unable to tolerate initially, so pt was given a one time dose of Versed per MD order and then tolerated it well. Pt was also evaluated by Speech, Physical and Occupational therapies and seen by Teleneurology at bedside and tolerated all with good humor. He was up to the BR with 1 assist and a walker and tolerated it fair. and daughter were at bedside this evening and appear loving and supportive. Report to ALLIE Farias.
[2024-11-16] MEDS: ENOXAPARIN 40 MG/0.4 ML INJ SUBCUT (21:00)
[2024-11-16] MEDS: ATORVASTATIN CALCIUM 40 MG TABLET PO (21:00)
[2024-11-17 02:13] VITALS: BP 131/82; PULSE 62; RESP 18; TEMP 36.8; O2SAT 93
--- NOTE | 2024-11-17 06:30 | PC.NURSE ---
End of shift [id number]: Pt AxOx4, pleasant, and cooperative with cares. Left sided facial drooping, left sided weakness continue in both arm and leg. Pt denied any pain. A1 GB W to the bathroom, unsteady gait present. Bed/chair alarms on at all times. Pt able to sleep for majority of the shift. Pt appears resting with call light in reach.
[2024-11-17 07:00] VITALS: BP 140/89; PULSE 60; PULSE 61; RESP 18; TEMP 36.8; O2SAT 94
[2024-11-17] MEDS: ASPIRIN 81 MG TAB.CHEW PO (09:04)
[2024-11-17] MEDS: CLOPIDOGREL 75 MG TABLET PO (09:05)
[2024-11-17] MEDS: SODIUM CHLORIDE 0.9 % (FLUSH) 10 ML SYRINGE 5 ML IVF ×2 (09:05→21:18)
--- NOTE | 2024-11-17 09:10 | PC.SOCIAL ---
Addendum entered by ESMER Pizarro 11/17/24 15:57: Discharge planning: Pt was accepted to [facility] for an admission on November 19. [facility] will put in the pt's insurance prior authorization or Saturday. The contact for [facility] tomorrow is Madhuri #[phone]. [facility] would like updated PT/OT/Speech notes faxed over tomorrow after the therapies are completed. Their fax number is #[phone]. On the pt will need to transfer via non-emergent EMS because it will be a transfer to transfer between [facility] and [facility]. Social work to follow-up as needed. Addendum entered by ESMER Pizarro 11/17/24 11:26: Discharge planning: donation worker heard back from Anastasia in Admissions for [facility] who shared that their [facility] does have beds right now for Acute Rehab. A referral was faxed to [facility] at fax number #[phone]. Social work to follow-up as needed. Original Note: Discharge planning: donation worker met with pt and his this morning to discuss Acute Rehab. Pt and his are interested in Acute Rehab and per other disciplines in the hospital the pt is appropriate for Acute Rehab. donation worker provided the pt and his with a list of Acute Rehab facilities. Pt and his would like [facility] the [facility] as their first choice and [facility] as their second choice. donation worker left voice messages at both facilities asking if they have Acute Rehab male bed availability. Social work to follow-up as needed.
[2024-11-17 11:00] VITALS: BP 137/89; PULSE 74; RESP 16; TEMP 36.9; O2SAT 95
[2024-11-17 15:00] VITALS: BP 130/82; PULSE 69; PULSE 75; RESP 16; TEMP 36.6; O2SAT 93
--- NOTE | 2024-11-17 15:33 | PM.IMPN1 ---
Assessment and Plan Assessment and plan (1) Stroke: Problem comment: - 11/15 symptoms of left facial droop, left upper and lower extremity weakness and ataxia consistent with probable stroke - 11/16 MRI confirmed stroke: Small acute infarct involving the right ventral paramedian isak. I spoke with Dr. Goldman from [place] [facility] at 12:24 p.m. he recommended continuing aspirin 81 mg daily plus Plavix 75 mg daily. Due to confirm stroke he asked me to hold the patient's usual blood pressure medications (I noted that he had already gotten his morning doses this morning) to allow for permissive hypertension. We discussed his lipid panel and Dr. Goldman would like him to be on atorvastatin 40 mg daily. He agreed that the slight worsening in weakness overnight is likely due to evolution/completion of the stroke. I spoke with the patient's family to give them this information as well and answered their questions. - 11/17 I think he would benefit from the intensive therapy available through acute rehab. 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 He has deficits that affect his quality of life and ADLs and would be able and is willing to participate in 3 or more hours per day of therapies. SW to help with d/c planning. Continue PT/OT/Speech. Status: Acute (2) Hypertension: Problem comment: - as per recommendations from Neurology above, hold antihypertensives today to allow for permissive hypertension in the setting of confirmed stroke. Restart antihypertensives tomorrow or next day. Status: Chronic (3) Dyslipidemia (high LDL; low HDL): Problem comment: TG 219; LDL 127; HDL 28 - 11/16 started atorvastatin 40 mg daily for dyslipidemia in the setting of stroke Status: Acute Total Time Spent Total Time Spent: Today I spent 60 minutes seeing the patient, having several conversations with his family, phone conversation with Neurology, reviewing Expanse and EPIC notes/diagnostics/labs, discussing the care plan with our care team that includes social work, PT/OT, pharmacy, RT, mcc and documenting my impressions and plan in the medical record. Subjective Time Seen by Provider: 09:35 Date Seen: 11/17/24 Interval history: Lakhwinder has no new complaints. He continues to feel unsteady on his feet and notices that the symptoms fluctuate. He feels that the weakness and unsteadiness is much worse in the mornings. He and his are concerned about going directly home and how he will be able to manage since he feels very unsteady this morning again. Exam Narrative: Exam Narrative: General: No acute distress. Awake alert oriented. Cardiovascular: Regular rate and rhythm. No murmurs, gallops, or rubs. Chest: Clear to auscultation bilaterally. No crackles or wheezes. Neuro: Left facial droop is unchanged. Strength is 3-4/5 in left upper extremity, 2/5 in left lower extremity, 5/5 in both right upper and lower extremities. Light touch sensation is intact in face, body and extremities. Coordination is impaired and left upper and left lower extremities. Const: Vital Signs, click to edit/add: Vital Signs - 24 hr 11/16/24 19:00 11/16/24 19:00 11/16/24 23:00 Temperature 97.9 F 97.9 F Pulse Rate Pulse Rate [Pulse Oximeter] 61 61 65 Respiratory Rate 18 18 Blood Pressure [Le ft Arm] 129/83 135/84 Pulse Oximetry 93 95 Oxygen Delivery [facility] Room Air Room Air 11/16/24 23:00 11/16/24 23:00 11/16/24 23:00 Temperature Pulse Rate 64 Pulse Rate [Pulse Oximeter] 65 Respiratory Rate 18 Blood Pressure [Le ft Arm] Pulse Oximetry 95 Oxygen Delivery [facility] Room Air 11/17/24 02:13 11/17/24 02:13 11/17/24 07:00 Temperature 98.2 F Pulse Rate 60 Pulse Rate [Pulse Oximeter] 62 62 Respiratory Rate 18 Blood Pressure [Le ft Arm] 131/82 Pulse Oximetry 93 Oxygen Delivery [facility] Room Air 11/17/24 07:00 11/17/24 07:00 11/17/24 07:00 Temperature Pulse Rate Pulse Rate [Pulse Oximeter] 61 61 Respiratory Rate 18 18 Blood Pressure [Le ft Arm] Pulse Oximetry 94 Oxygen Delivery [facility] Room Air 11/17/24 07:00 11/17/24 11:00 11/17/24 11:00 Temperature 98.3 F 98.4 F Pulse Rate Pulse Rate [Pulse Oximeter] 61 74 74 Respiratory Rate 18 16 Blood Pressure [Le ft Arm] 140/89 H 137/89 Pulse Oximetry 94 95 Oxygen Delivery [facility] Room Air Room Air Progress Note: Quality Stroke Contraindication Not Initiating IV-Tpa: Medical contraindication (out of time window) Onset of Symptoms Date: 11/13/24 Symptom Onset Unknown: Yes
--- NOTE | 2024-11-17 15:47 | PC.NURSE ---
End of shift [id number]: Patient alert/oriented, scoring 15 on Q4 Neuro checks. VSS, permissive HTN parameters in place. Tolerating a reg. diet. Patient on RA, denies N/V/SOB or pain. Patient NSR w/1st degree HB. Patient is assist of 1 walker/GB and tolerating activity well. IV is SL and patent. Family at bedside throughout the day.
[2024-11-17 19:00] VITALS: BP 134/84; PULSE 66; RESP 16; TEMP 36.6; O2SAT 93
[2024-11-17] MEDS: ATORVASTATIN CALCIUM 40 MG TABLET PO (21:18)
[2024-11-17] MEDS: ENOXAPARIN 40 MG/0.4 ML INJ SUBCUT (21:18)
[2024-11-17 23:00] VITALS: BP 111/72; PULSE 59; PULSE 64; RESP 16; TEMP 36.6; O2SAT 94
[2024-11-18] VITALS (10 sets, daily range): BP systolic 122–144; BP diastolic 80–95; PULSE 61–82; RESP 16–20; TEMP 36.3–36.8; O2SAT 93–94
--- NOTE | 2024-11-18 04:42 | PC.NURSE ---
Shift note: Pt is alert and oriented. Continue to have left sided weakness but no change from baseline. Patient endorsed that the weakness has been about the same since yesterday. Ambulated with A1, walker and GB. No cognitive decline. Takes pill whole with water. Pt was up early around 0330. No pain reported. Vitally stable. NSR read from the telemetry.
[2024-11-18] MEDS: SODIUM CHLORIDE 0.9 % (FLUSH) 10 ML SYRINGE 5 ML IVF ×2 (08:51→20:07)
[2024-11-18] MEDS: CLOPIDOGREL 75 MG TABLET PO (08:51)
[2024-11-18] MEDS: ASPIRIN 81 MG TAB.CHEW PO (08:51)
--- NOTE | 2024-11-18 09:45 | PC.SOCIAL ---
Addendum entered and electronically signed by Luci Burgess LCSW 11/18/24 15:55: [facility] spoke with Madhuri who states they are still waiting on the prior auth. Madhuri requested [facility]OC's email address so that she could send patient a welcome packet for SW to give him. Madhuri states she will contact [facility] when prior auth is received. [facility]OC met with patient and patient's . SW provided the welcome packet to patient's . had questions about transportation. ENOC explained that transport is set for 1000 and explained it could be a little earlier or later. ENOC discussed that the only thing we are waiting on right now is for [facility] to receive the prior auth from insurance. ENOC explained that she would inform them when this information is received. ENOC called two times to determine if prior auth has been received. Madhuri did not answer. ENOC emailed Maduhri and is awaiting a reply. Original Note: Discharge Planning: ENOC spoke with Madhuri at [facility] to inquire about if PT/OT notes are needed from 11/17. Madhuri states that she already received these and that tomorrow or later in the afternoon she would need PT/OT/ELECTRIC VEHICLE ELECTRICIAN notes along with recent MAR and MD progress notes. Madhuri also reports that they need a Zio Patch placed or ordered. SW to send these in the morning.
--- NOTE | 2024-11-18 15:43 | PM.IMPN1 ---
Assessment and Plan Assessment and plan (1) Stroke: Problem comment: - 11/15 symptoms of left facial droop, left upper and lower extremity weakness and ataxia consistent with probable stroke - 11/16 MRI confirmed stroke: Small acute infarct involving the right ventral paramedian isak. I spoke with Dr. Goldman from [place] [facility] at 12:24 p.m. he recommended continuing aspirin 81 mg daily plus Plavix 75 mg daily. Due to confirm stroke he asked me to hold the patient's usual blood pressure medications (I noted that he had already gotten his morning doses this morning) to allow for permissive hypertension. We discussed his lipid panel and Dr. Goldman would like him to be on atorvastatin 40 mg daily. He agreed that the slight worsening in weakness overnight is likely due to evolution/completion of the stroke. I spoke with the patient's family to give them this information as well and answered their questions. - 11/17 I think he would benefit from the intensive therapy available through acute rehab. 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 He has deficits that affect his quality of life and ADLs and would be able and is willing to participate in 3 or more hours per day of therapies. SW to help with d/c planning. Continue PT/OT/Speech. Status: Acute (2) Hypertension: Problem comment: - as per recommendations from Neurology above, hold antihypertensives today to allow for permissive hypertension in the setting of confirmed stroke. Restart antihypertensives tomorrow or next day. Status: Chronic (3) Dyslipidemia (high LDL; low HDL): Problem comment: TG 219; LDL 127; HDL 28 - 11/16 started atorvastatin 40 mg daily for dyslipidemia in the setting of stroke Status: Acute (4) CLL (chronic lymphocytic leukemia): Problem comment: check lab every 6 months Status: Chronic Plan 1. Reviewed impression with patient, , daughter 2. Answered their questions to their satisfaction 3. They are agreeable with above stated plans and recommendations. Total Time Spent Total Time Spent: 40 minute Subjective Date Seen: 11/18/24 Interval history: Admission history of present illness, 11/15/2024: ?59 year old male with h/o hypertension came in for persistent left leg and arm weakness. He started having leg cramps in the left leg only Saturday night as he was trying to sleep. 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 All Saturday morning his left leg felt like it was dragging his left hand was not responding quite as quickly as his right does. On rare occasion he has had left leg cramping before but it was never associated with loss of mobility like it was on Saturday. When it has happened in the middle of the night he will often get up and move around and that improves the pain. He also takes magnesium sometimes which helps. The left leg weakness started to improve a little bit on Saturday, but by the evening he was having the left leg cramping again and then this morning left leg was again very weak and dragging. ?He tells me that he has overall been well recently other than a upper respiratory illness about a month ago that turned into a chest cold with a significant amount of coughing. [place] short of breath during that time but that resolved on its own. He has had no chest pain and no further shortness of breath.? Hospital day 4, 11/18/2024: Yesterday had an episode of transient increased left-sided weakness. Has not had recurrence of the same since then. Spoke with neurologist today, Dr. Sameer Goldman, who recommended that we not we start antihypertensive medications today due to possible persistence of penumbra. He recommended that we restart his antihypertensive medication 1 week from now at the earliest. Exam Narrative: Exam Narrative: Examined patient in his hospital room and as he is working with physical therapy in the hallway. Appears comfortable no acute distress. Residual left upper extremity and left lower extremity weakness. Lungs are clear to auscultation. Heart rate is regular with normal S1-S2. Extremities without edema. Const: Vital Signs, click to edit/add: Vital Signs - 24 hr 11/17/24 19:00 11/17/24 19:00 11/17/24 23:00 Temperature 98 F Pulse Rate Pulse Rate [Pulse Oximeter] 66 66 64 Respiratory Rate 16 Blood Pressure [Le ft Arm] 134/84 Pulse Oximetry 93 Oxygen Delivery Me thod Room Air 11/17/24 23:00 11/17/24 23:00 11/17/24 23:00 Temperature 98 F Pulse Rate Pulse Rate [Pulse Oximeter] 64 64 Respiratory Rate 16 16 16 Blood Pressure [Le ft Arm] 111/72 Pulse Oximetry 94 94 Oxygen Delivery Me thod Room Air Room Air 11/17/24 23:00 11/18/24 03:00 11/18/24 03:00 Temperature 97.8 F Pulse Rate 59 L Pulse Rate [Pulse Oximeter] 61 61 Respiratory Rate 16 Blood Pressure [Le ft Arm] 135/93 H Pulse Oximetry 93 Oxygen Delivery Me thod Room Air 11/18/24 07:15 11/18/24 08:23 11/18/24 08:23 Temperature 97.9 F Pulse Rate 63 Pulse Rate [Pulse Oximeter] 65 Respiratory Rate 18 18 Blood Pressure [Le ft Arm] 137/95 H Pulse Oximetry 94 94 Oxygen Delivery Wi thod Room Air Room Air 11/18/24 11:54 Temperature 97.9 F Pulse Rate Pulse Rate [Pulse Oximeter] 63 Respiratory Rate 20 Blood Pressure [Le ft Arm] 122/84 Pulse Oximetry 93 Oxygen Delivery Me thod Room Air Progress Note: Quality Stroke Contraindication Not Initiating IV-Tpa: Medical contraindication (out of time window) Onset of Symptoms Date: 11/13/24 Symptom Onset Unknown: Yes
[2024-11-18] MEDS: ATORVASTATIN CALCIUM 40 MG TABLET PO (20:06)
[2024-11-18] MEDS: ENOXAPARIN 40 MG/0.4 ML INJ SUBCUT (20:06)
[2024-11-19 03:00] VITALS: BP 141/100; PULSE 68; RESP 18; TEMP 36.6; O2SAT 95
[2024-11-19 04:00] VITALS: PULSE 72
--- NOTE | 2024-11-19 05:30 | PC.NURSE ---
Shift note: Patient had a stabilized mood tonight and continue to engage physical activities. Ambulated with SBA to and from BR. Neurological symptoms including left sided weakness and facial droop are as per baseline. Takes pill whole and swallow food and liquids without difficulty. Patient had adequate sleep. Vitally stable. Education about pending discharge and transfer given.
[2024-11-19 07:00] VITALS: BP 151/96; PULSE 90; PULSE 92; RESP 18; TEMP 36.6; O2SAT 91
[2024-11-19 08:00] VITALS: PULSE 90
[2024-11-19] MEDS: ASPIRIN 81 MG TAB.CHEW PO (09:42)
[2024-11-19] MEDS: CLOPIDOGREL 75 MG TABLET PO (09:42)
[2024-11-19] MEDS: SODIUM CHLORIDE 0.9 % (FLUSH) 10 ML SYRINGE 5 ML IVF (09:42)
--- NOTE | 2024-11-19 13:35 | P.DS_ITS ---
DS: Providers Provider Date Seen: 11/19/24 Date of admission: 11/16/24 09:06 Primary care physician: Enrrique Au MD Admitting Clinician: Flor Dang MD Consults: 11/15/24 15:46 Consult to Physical Therapy [CONS] Routine Comment: Reason(s) for PT Consult:: Evaluate and Treat Any Restrictions?:: No Restrictions Consult to [facility] [CONS] Routine Comment: Reason for Consult:: Discharge Planning Needs Consult to Speech Therapy [CONS] Routine Comment: Reason(s) for Speech Consult:: Speech/Swallowing Eval 11/15/24 15:47 Consult to Occupational Therapy [CONS] Routine Comment: Reason(s) for OT Consult:: Evaluate and Treat Any Restrictions?:: No Restrictions Attending Physician on discharge: Joaquin Lang MD Date of Discharge: 11/19/24 DS: Diagnosis Discharge Diagnosis (1) Stroke: Status: Acute Problem details: - 11/15 symptoms of left facial droop, left upper and lower extremity weakness and ataxia consistent with probable stroke - 11/16 MRI confirmed stroke: Small acute infarct involving the right ventral paramedian iska. I spoke with Dr. Goldman from [facility] at 12:24 p.m. he recommended continuing aspirin 81 mg daily plus Plavix 75 mg daily. Due to confirm stroke he asked me to hold the patient's usual blood pressure medication s (I noted that he had already gotten his morning doses this morning) to allow for permissive hypertension. We discussed his lipid panel and Dr. Goldman would like him to be on atorvastatin 40 mg daily. He agreed that the slight worsening in weakness overnight is likely due to evolution/completion of the stroke. I spoke with the patient's family to give them this information as well and answered their questions. - 11/17 I think he would benefit from the intensive therapy available through acute rehab. 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 He has deficits that affect his quality of life and ADLs and would be able and is willing to participate in 3 or more hours per day of therapies. SW to help with d/c planning. Continue PT/ OT/Speech. (2) Hypertension: Status: Chronic Problem details: - as per recommendations from Neurology above, hold antihypertensives today to allow for permissive hypertension in the setting of confirmed stroke. Restart antihypertensives 1 week after stroke. (3) Dyslipidemia (high LDL; low HDL): Status: Acute Problem details: TG 219; LDL 127; HDL 28 - 11/16 started atorvastatin 40 mg daily for dyslipidemia in the setting of stroke (4) CLL (chronic lymphocytic leukemia): Status: Chronic Problem details: check lab every 6 months DS: Summary Hospital Course Hospital Course: Admission history of present illness: ?59 year old male with h/o hypertension came in for persistent left leg and arm weakness. He started having leg cramps in the left leg only Saturday night as he was trying to sleep. 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 All Saturday morning his left leg felt like it was dragging his left hand was not responding quite as quickly as his right does. On rare occasion he has had left leg cramping before but it was never associated with loss of mobility like it was on Saturday. When it has happened in the middle of the night he will often get up and move around and that improves the pain. He also takes magnesium sometimes which helps. The left leg weakness started to improve a little bit on Saturday, but by the evening he was having the left leg cramping again and then this morning left leg was again very weak and dragging. ? He tells me that he has overall been well recently other than a upper respiratory illness about a month ago that turned into a chest cold with a significant amount of coughing. [place] short of breath during that time but that resolved on its own. He has had no chest pain and no further shortness of breath.? For details of hospital course see above diagnoses. Patient is discharged from the hospital to [facility] for intensive inpatient rehabilitation efforts. Zio patches applied before he leaves and will be left in place for 2 weeks with the assessments per his primary care physician thereafter. Follow-up with Neurology and his primary care physician as specified. Status at Discharge Functional status at discharge: uses cane/walker Overall status at discharge: patient is progressing back to baseline Time Spent with Patient Time attestation: Total time spent providing and/or coordinating discharge services: Time spent: Less than 30 minutes Exam Narrative: Exam Narrative: Examined patient in his hospital room and as he is working with physical therapy in the hallway. Appears comfortable no acute distress. Residual left upper extremity and left lower extremity weakness. Lungs are clear to auscultation. Heart rate is regular with normal S1-S2. Extremities without edema. Const: Vital Signs, click to edit/add: Vital Signs - 24 hr 11/18/24 15:42 11/18/24 15:43 11/18/24 15:43 Temperature 97.3 F L Pulse Rate 79 Pulse Rate [Pulse Oximeter] 82 Respiratory Rate 18 18 Blood Pressure [Le ft Arm] 133/80 Pulse Oximetry 93 93 Oxygen Delivery Me thod Room Air Room Air 11/18/24 19:00 11/18/24 20:00 11/18/24 23:00 Temperature 98.2 F Pulse Rate Pulse Rate [Pulse Oximeter] 73 73 68 Respiratory Rate 18 18 Blood Pressure [Le ft Arm] 144/91 H Pulse Oximetry 93 Oxygen Delivery Me thod Room Air 11/18/24 23:00 11/18/24 23:00 11/18/24 23:00 Temperature 98.3 F Pulse Rate 77 Pulse Rate [Pulse Oximeter] 68 Respiratory Rate 18 18 Blood Pressure [Le ft Arm] 141/83 H Pulse Oximetry 93 93 Oxygen Delivery Ak thod Room Air Room Air 11/18/24 23:49 11/19/24 03:00 11/19/24 04:00 Temperature 98 F Pulse Rate Pulse Rate [Pulse Oximeter] 68 68 72 Respiratory Rate 18 Blood Pressure [Le ft Arm] 141/100 H Pulse Oximetry 95 Oxygen Delivery Ak thod Room Air 11/19/24 07:00 11/19/24 07:00 11/19/24 07:00 Temperature 97.9 F Pulse Rate Pulse Rate [Pulse Oximeter] 90 90 Respiratory Rate 18 18 18 Blood Pressure [Le ft Arm] 151/96 H Pulse Oximetry 91 [facility] 11/19/24 07:00 Temperature Pulse Rate 92 Pulse Rate [Pulse Oximeter] Respiratory Rate Blood Pressure [Le ft Arm] Pulse Oximetry Oxygen Delivery Me thod DS: Data Imaging MR Brain: Attestation: I have reviewed the pertinent imaging results. Radiologist's impression: Findings: Small acute infarct involving the right ventral paramedian isak. No hemorrhagic transformation. Ventricles and cortical sulci are normal in configuration. Incidental prominent perivascular space at the right inferior basal ganglia. Normal white matter signal. Preserved major intracranial arterial flow voids. Complete opacification of the frontal sinuses. No mastoid effusion. Unremarkable orbits. Impression: 1. Small acute infarct involving the right ventral paramedian isak. No hemorrhagic transformation. 2. Opacified frontal sinuses. CT angiogram of head and neck: Radiologist's impression: No significant abnormalities CT scan - head: Radiologist's impression: No acute intracranial abnormalities Discharge Plan Discharge Disposition: Xfer SNF Discharge Location: [facility] Date of Admission: 11/16/24 09:06 Attending Provider on Discharge: Joaquin Lang Primary Care Provider: Enrrique Au Condition: Stable Discharge Medications: New atorvastatin 40 mg Tablet 40 mg PO HS 30 Days Qty: 30 2RF clopidogrel 75 mg Tablet 75 mg PO DAILY 20 Days Qty: 20 0RF aspirin [Children's Aspirin] 81 mg Tablet,Chewable 81 mg PO DAILY 30 Days Qty: 30 2RF Continued amlodipine 10 mg tablet 10 mg PO DAILY metoprolol succinate 200 mg tablet extended release 24 hr 200 mg PO DAILY furosemide [Lasix] 20 mg tablet 20 mg PO DAILY spironolactone 25 mg tablet 25 mg PO DAILY cholecalciferol (vitamin D3) [Vitamin D3] 25 mcg (1,000 unit) tablet 2,000 unit PO DAILY Discharge Orders: Discharge Order (Routine); Ordered 11/19/24 Ordered By: Joaquin Lang Transfer of Care to Other Hospital (ORDER); Ordered 11/19/24 Ordered By: Joaquin Lang Additional Instructions: Neurologist recommends application of ZIO patch for on-going assessment of cardiac rhythm as part of the stroke assessment.Zio Patch placed on 11/19/24. Will be on for 14 days. Instructions for use and return of Zio Patch included in packet sent to nursing staff at [facility]. Activity Level: Activity as Tolerated and Other Discharge Diet: Heart Healthy (2 gm sodium, low fat) Follow Up Appointments: Enrrique Au MD [Primary Care Provider] - Forms: [employer] Info [facility]ructions [facility] Potential: Good Length of Stay: <30 days Can use facility standing orders?: Yes Code Status: Full Code Rehab Potential: Good Therapy: Physical Therapy, Occupational Therapy and Speech Therapy Therapy Orders: Evaluate and Treat Oxygen: No Urinary Catheter: No Orders are good >30 days: No Signature: Joaquin Lang
--- NOTE | 2024-11-19 13:50 | PC.NURSE ---
Discharge: Patient pleasant and cooperative, A&O. VSS, afebrile. Left sided weakness this shift. IV removed with tip intact. discharged to another facility at 1007.
== END 2024-11-19 10:07 | DRG 45 ==
LOC: ED 12:12 → MEDSURG 13:18
PROVIDERS: Admitting Provider Family Medicine; Emergency Provider Family Medicine; PCP Family Medicine; Visit Provider Family Medicine
DX: I63.9 Cerebral infarction, unspecified (principal); R29.810 Facial weakness; R27.0 Ataxia, unspecified; G81.94 Hemiplegia, unspecified affecting left nondominant side; C91.10 Chronic lymphocytic leukemia of B-cell type not having achieved remission; I10 Essential (primary) hypertension; F32.A Depression, unspecified; E78.5 Hyperlipidemia, unspecified; R40.2413 Glasgow coma scale score 13-15, at hospital admission
CPT/HCPCS: 36415; 70450; 70496; 70498; 70551; 80048; 80061; 80076; 83605; 84443; 84484; 85025; 85610; 86140; 92507; 92610; 93005; 93246; 93306; 93971; 96374; 97110; 97112; 97116; 97161; 97166; 97535; 99233; 99284; 99285; G0426; A9270; G0378; J1650; J2250; Q9967

== ENCOUNTER 2024-11-19 09:55 | Outpatient (CLI) | payer BC, SELFPAY | END 2024-11-19 09:56 | disposition home or self-care (01) | LOC: AMB 11-20 11:55 | PROVIDERS: PCP Family Medicine; Visit Provider Family Medicine | DX: R53.1 Weakness (principal) | CPT/HCPCS: A0425; A0429 ==